=== PATIENT | female | born 1995 | race Caucasian/White ===

== ENCOUNTER 2018-03-14 03:44 | Emergency (ER) | payer MEDICAID ==
[2018-03-14] MEDS ORDERED: Sodium Chloride 0.9% 1,000 ML IV STA (04:28)
--- NOTE | 2018-03-14 05:13 | ED PDOC ---
HPI: Psych/Substance Abuse Time Seen by Provider: 03/14/18 04:17 Chief Complaint (Nursing): Alcohol Ingestion Chief Complaint (Provider): Alcohol Ingestion ED Caveat: Intoxicated History Per: EMS History/Exam Limitations: intoxication Current Symptoms Are (Timing): Still Present Modifying Factor(s): Alcohol Additional Complaint(s): 23 year old female arrives to ED via EMS for an evaluation after patient was found intoxicated and vomiting on [address] prior to arrival. Patient is a limited historian as she is non-verbal. Past Medical History Reviewed: Nursing Documentation, Vital Signs, Unable To Obtain Vital Signs: Last Vital Signs Temp 97.5 F L 03/14/18 03:47 Pulse 96 H 03/14/18 03:47 Resp 18 03/14/18 03:47 BP 114/77 03/14/18 03:47 Pulse Ox 96 03/14/18 03:47 - Medical History PMH: Anxiety, Depression Denies: Diabetes, Hepatitis, HIV, HTN, Chronic Kidney Disease, Seizures, Sexually Transmitted Disease - Family History Family History: States: Unknown Family Hx - Home Medications Home Medications: Ambulatory Orders Medication Instructions Recorded Norethindrone-E.estradiol-Iron 1 tab PO 04/07/16 [Tri-Legest Fe-28 Day Tablet] Sertraline [Zoloft] 1 tab PO DAILY #30 tab 04/09/16 - Allergies Allergies/Adverse Reactions: Allergies Allergy/AdvReac Type Severity Reaction Status Date / Time No Known Allergies Allergy Verified 04/07/16 00:56 Review of Systems Review Of Systems: ROS cannot be obtained secondary to pt's inabilty to answer questions. Physical Exam - Reviewed Nursing Documentation Reviewed: Yes Vital Signs Reviewed: Yes - Physical Exam Appears: Positive for: No Acute Distress Head Exam: Positive for: ATRAUMATIC, NORMAL INSPECTION, NORMOCEPHALIC Eye Exam: Positive for: Normal appearance, EOMI, PERRL Cardiovascular/Chest: Positive for: Regular Rate, Rhythm Respiratory: Positive for: Normal Breath Sounds. Negative for: Wheezing, Respiratory Distress Extremity: Negative for: Deformity (upper/lower) Neurologic/Psych: Positive for: Other (arousable). Negative for: Alert - Laboratory Results Result Diagrams: 03/14/18 05:18 03/14/18 05:18 - ECG O2 Sat by Pulse Oximetry: 96 (RA) Pulse Ox Interpretation: Normal Medical Decision Making Medical Decision Making: Initial Impression: Alcohol intoxication Initial Plan: * Acetaminophen * Alcohol serum * BMP * Drug screen, urine * BETA-HCG * Salicylate * Urine * Urine dipstick * CBC * NS 1,000ml IV per 1,000mls/hr * UA Scribe Attestation: Documented by Chloe Pozo, acting as a scribe for Harinder Chacon MD. Provider Scribe Attestation: All medical record entries made by the Scribe were at my direction and personally dictated by me. I have reviewed the chart and agree that the record accurately reflects my personal performance of the history, physical exam, medical decision making, and the department course for this patient. I have also personally directed, reviewed, and agree with the discharge instructions and disposition. Time: 699 -- Patient endorsed to Dr. Martins, pending sobriety. Scribe Attestation: Documented by Coty Wadsworth acting as a scribe for Dr. Harinder Chacon MD. Provider Scribe Attestation: All medical record entries made by the Scribe were at my direction and personally dictated by me. I have reviewed the chart and agree that the record accurately reflects my personal performance of the medical decision making for this patient. I have also personally directed, reviewed, and agree with the discharge instructions and disposition. Disposition - Clinical Impression Clinical Impression: Alcohol abuse, Hypokalemia - Patient ED Disposition Is Patient to be Admitted: Transfer of Care Doctor Will See Patient In The: Office Counseled Patient/Family Regarding: Studies Performed, Diagnosis, Need For Followup - Disposition Referrals: [facility] [Outside] - 03/16/18 Disposition: Transfer of Care Disposition Time: 07:00 Condition: STABLE Additional Instructions: Return if not better in 3 days. Instructions: Hypokalemia, Alcohol Abuse and Alcoholism (DC) Patient Signed Over To: Italo Martins
[2018-03-14 05:35] LABS: BASO % 0.3 % (0.0-2.0); EOS % 0.3 % (0.0-4.0); LYMPH # 1.1 K/uL (1.0-4.3); LYMPH % 11.7 % (20.0-40.0); MEAN CELL VOLUME 90.1 fl (81.0-99.0); MEAN CORPUSCULAR HEMOGLOBIN 30.5 pg (27.0-31.0); MEAN CORPUSCULAR HGB CONC 33.9 g/dL (33.0-37.0); MEAN PLATELET VOLUME 7.6 fl (7.2-11.7); MONO # 0.5 K/uL (0.0-0.8); MONO % 5.4 % (0.0-10.0); NEUT # 7.9 K/uL (1.8-7.0); NEUT % 82.3 % (50.0-75.0); RBC 4.25 Mil/uL (3.80-5.20); RED CELL DISTRIBUTION WIDTH 13.7 % (11.5-14.5); WHITE BLOOD COUNT 9.6 K/uL (4.8-10.8)
[2018-03-14 05:49] LABS: BLOOD UREA NITROGEN 7 mg/dl (7-17); CALCIUM 9.1 mg/dL (8.4-10.2); GFR NON-AFRICAN AMERICAN > 60
[2018-03-14 05:51] LABS: ACETAMINOPHEN < 10.0 ug/ml (10.0-30.0); SALICYLATE < 1.0 mg/dl
--- NOTE | 2018-03-14 07:34 | ED PDOC ---
- Laboratory Results Result Diagrams: 03/14/18 05:18 03/14/18 05:18 - ECG O2 Sat by Pulse Oximetry: 96 (RA) Pulse Ox Interpretation: Normal - Progress ED Course And Treament: 754: Stable. AAOx3. Tolerated PO. Ambulated with no issues. Clinical sobriety reached. Medical Decision Making Medical Decision Making: Time: 0700 -- Patient endorsed to me by Dr. Chacon. Patient is a 23 y/o female brought to the ED via EMS for public intoxication. No physical injury, pending sobriety. Scribe Attestation: Documented by Coty Wadsworth acting as a scribe for Dr. Italo Martins MD. Provider Scribe Attestation: All medical record entries made by the Scribe were at my direction and personally dictated by me. I have reviewed the chart and agree that the record accurately reflects my personal performance of the history, physical exam, medical decision making, and the department course for this patient. I have also personally directed, reviewed, and agree with the discharge instructions and disposition. Disposition - Clinical Impression Clinical Impression: Alcohol abuse, Hypokalemia - POA Present On Arrival: None - Disposition Referrals: [facility] [Outside] - 03/16/18 Disposition: Routine/Home Disposition Time: 07:55 Condition: STABLE Additional Instructions: Return if not better in 3 days. Instructions: Hypokalemia, Alcohol Abuse and Alcoholism (DC)
[2018-03-14] MEDS ORDERED: Potassium Chloride 20 mEq ER Tab PO ONE (07:53)
[2018-03-14 08:39] LABS: SQUAMOUS EPITHIAL 2 /hpf (0-5); URINE BACTERIA RARE (<OCC); URINE BILIRUBIN NEGATIVE (NEGATIVE); URINE BLOOD SMALL (NEGATIVE); URINE CLARITY SLIGHTY-CLOUDY (Clear); URINE COLOR YELLOW (YELLOW); URINE GLUCOSE (UA) NEG (Normal); URINE LEUKOCYTE ESTERASE NEG Leu/uL (Negative); URINE PROTEIN NEGATIVE (NEGATIVE); URINE UROBILINOGEN 0.2-1.0 mg/dL (0.2-1.0)
[2018-03-14 08:54] LABS: BARBITURATES, UR NEGATIVE (NEGATIVE); BENZODIAZEPINES, UR NEGATIVE (NEGATIVE); OPIATES, UR NEGATIVE (NEGATIVE); PHENCYCLIDINE, UR NEGATIVE (NEGATIVE)
[2018-03-14 09:59] VITALS: BP 112/70; PULSE 88; RESP 16; TEMP 97.6
[2018-03-14 20:03] VITALS: O2SAT 96
== END 2018-03-14 10:00 | disposition home or self-care (01) ==
LOC: H.ER 03:44
DX: F10.129 Alcohol abuse with intoxication, unspecified (principal); E87.6 Hypokalemia; Z86.59 Personal history of other mental and behavioral disorders; Y90.6 Blood alcohol level of 120-199 mg/100 ml
CPT/HCPCS: 80048; 80320; 80324; 80329; 80345; 80346; 80349; 80353; 80358; 80361; 81003; 81025; 82948; 83992; 84703; 85025; 99285; J7030